=== PATIENT | male | born 2000 | race Two or more races ===

== ENCOUNTER → 2025-07-16 | Emergency (ER) | payer OTHER ==
[~2025-07-16] VITALS: Ht 190.5 cm; Wt 113.4 kg
[~2025-07-16] MED LIST: KETO10TA2 PO; KETOROLAC TROMETHAMINE 60 MG VIAL IM STA
[2025-07-16 00:23] VITALS: BP 129/79; O2SAT 97
== END | disposition home or self-care (01) ==
LOC: ER 00:07
DX: S99.821A Other specified injuries of right foot, initial encounter (principal); V03.00XA Pedestrian on foot injured in collision with car, pick-up truck or van in nontraffic accident, initial encounter; Y93.89 Activity, other specified; Y92.481 Parking lot as the place of occurrence of the external cause; M79.671 Pain in right foot